=== PATIENT | male | born 1990 | race Caucasian/White ===

== ENCOUNTER 2016-11-23 10:58 | Emergency (ER) | payer OTHER ==
--- NOTE | 2016-11-23 11:04 | PDOC ---
History of Present Illness - General History Source: Patient Exam Limitations: No Limitations - History of Present Illness Initial Comments: 11/23/16 11:11 The patient is a 25 year old male with a significant past medical history of asthma, who presents to the ED with asthma exacerbation. 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 Patient states he uses his albuterol inhaler with little to no alleviation. Patient denies chest pain, fever, chills, nausea, vomiting, diarrhea. Patient denies dysuria, frequency, hematuria. <Steve An - Last Filed: 11/23/16 11:11> <Giorgio Herman - Last Filed: 11/23/16 13:43> - General Chief Complaint: Asthma Stated Complaint: ASTHMA Time Seen by Provider: 11/23/16 11:03 Past History <Steve An - Last Filed: 11/23/16 11:11> - Past Medical History Anemia: Yes - Suicide/Smoking/Psychosocial Hx Smoking History: Never smoked Hx Alcohol Use: No Drug/Substance Use Hx: No Substance Use Type: None <Giorgio Herman - Last Filed: 11/23/16 13:43> - Past Medical History Allergies/Adverse Reactions: Allergies Allergy/AdvReac Type Severity Reaction Status Date / Time No Known Allergies Allergy Verified 11/23/16 11:03 Home Medications: Ambulatory Orders Albuterol 0.083% Nebulizer Amanda [Ventolin 0.083%] 1 neb NEB QID PRN 11/23/16 Albuterol Sulfate Inhaler - [Ventolin HFA Inhaler -] 1 - 2 inh PO QID #1 inhaler 11/23/16 Albuterol Sulfate Inhaler - [Ventolin Hfa Inhaler -] 2 inh PO Q6H PRN 11/23/16 Prednisone [Prednisone 50 MG TABLETS] 50 mg PO BID #10 tablet MDD 2 11/23/16 Review of Systems - Review of Systems Able to Perform ROS?: Yes Comments:: 11/23/16 11:11 GENERAL/CONSTITUTIONAL: No fever or chills. No weakness. HEAD, EYES, EARS, NOSE AND THROAT: No change in vision. No ear pain or discharge. No sore throat. CARDIOVASCULAR: + SOB. No chest pain RESPIRATORY: + asthma exacerbation. No cough, or hemoptysis. GASTROINTESTINAL: No nausea, vomiting, diarrhea or constipation. GENITOURINARY: No dysuria, frequency, or change in urination. MUSCULOSKELETAL: No joint or muscle swelling or pain. No neck or back pain. SKIN: No rash NEUROLOGIC: No headache, vertigo, loss of consciousness, or change in strength/ sensation. ENDOCRINE: No increased thirst. No abnormal weight change. HEMATOLOGIC/LYMPHATIC: No anemia, easy bleeding, or history of blood clots. ALLERGIC/IMMUNOLOGIC: No hives or skin allergy. <Steve An - Last Filed: 11/23/16 11:11> *Physical Exam - Physical Exam Comments: 11/23/16 11:12 GENERAL: Awake, alert, and fully oriented, in no acute distress HEAD: No signs of trauma EYES: PERRLA, EOMI, sclera anicteric, conjunctiva clear ENT: Auricles normal inspection, hearing grossly normal, nares patent, oropharynx clear without exudates. Moist mucosa NECK: Normal ROM, supple, no lymphadenopathy, JVD, or masses LUNGS: Anteriorly and posteriorly wheezing to all lung webb. No crackles. HEART: Regular rate and rhythm, normal S1 and S2, no murmurs, rubs or gallops ABDOMEN: Soft, nontender, normoactive bowel sounds. No guarding, no rebound. No masses EXTREMITIES: Normal range of motion, no edema. No clubbing or cyanosis. No cords, erythema, or tenderness NEUROLOGICAL: Cranial nerves II through XII grossly intact. Normal speech, normal gait SKIN: Warm, Dry, normal turgor, no rashes or lesions noted. <Steve An - Last Filed: 11/23/16 11:11> Medical Decision Making - Medical Decision Making 11/23/16 13:19 Patient feeling much better exam without conversational dyspnea or wheezing to auscultation <Giorgio Herman - Last Filed: 11/23/16 13:43> *DC/Admit/Observation/Transfer - Attestations Scribe Attestion: 11/23/16 11:13 Documentation prepared by Steve An, acting as medical data entry clerk for Giorgio Herman MD. <Steve An - Last Filed: 11/23/16 11:11> - Discharge Dispostion Admit: No - Attestations Physician Attestion: 11/23/16 11:03 I, Dr. Giorgio Herman, attest that this document has been prepared under my direction and personally reviewed by me in its entirety. I further attest, that it accurately reflects all work, treatment, procedures and medical decision -making performed by me. <Giorgio Herman - Last Filed: 11/23/16 13:43> Diagnosis at time of Disposition: Chemical exposure Reactive airway disease with acute exacerbation Qualifiers: Asthma severity: moderate Asthma persistence: persistent Qualified Code(s): J45.41 - Moderate persistent asthma with (acute) exacerbation; J45.41 - Moderate persistent asthma with (acute) exacerbation; J45.41 - Moderate persistent asthma with (acute) exacerbation Asthma Qualifiers: Asthma severity: moderate Asthma persistence: unspecified Asthma complication type: with acute exacerbation Qualified Code(s): J45.901 - Unspecified asthma with (acute) exacerbation; J45.901 - Unspecified asthma with (acute) exacerbation; J45.901 - Unspecified asthma with (acute) exacerbation - Discharge Dispostion Disposition: HOME Condition at time of disposition: Good - Prescriptions Prescriptions: Prednisone [Prednisone 50 MG TABLETS] 50 mg PO BID #10 tablet MDD 2 Albuterol Sulfate Inhaler - [Ventolin HFA Inhaler -] 1 - 2 inh PO QID #1 inhaler - Referrals Referrals: Baudilio Soler MD [Staff Physician] - May Marr MD [Staff Physician] - - Patient Instructions Printed Discharge Instructions: Asthma -- Adult Additional Instructions: Mike, you can also be seen at [facility], but you can also be seen in [facility] for some Advir.......
[2016-11-23] MEDS ORDERED: MAGNESIUM SULF 50% (8.12 MEQ/2 ML-1 GM VIAL) IVPB ONE (11:11)
[2016-11-23] MEDS ORDERED: ALBUTEROL SO4 0.083% IH SOL 2.5 MG/3 ML VIAL.NEB. NEB PRN (11:11)
[2016-11-23] MEDS ORDERED: ALBUTEROL SO4 2.5/IPRATROPIUM 0.5 INH SOL 3 ML VIAL.NEB. NEB ONE ×3 (11:11→11:25)
[2016-11-23] MEDS ORDERED: methylPREDNISolone NA SUCC 125 MG/2 ML VIAL IVPB ONE (11:11)
[2016-11-23] MEDS ORDERED: MAGNESIUM SULF 50% (8.12 MEQ/2 ML-1 GM VIAL) ONE (11:13)
[2016-11-23] MEDS ORDERED: ALBUTEROL SO4 0.083% IH SOL 2.5 MG/3 ML VIAL.NEB. NEB ONE (11:13)
[2016-11-23] MEDS ORDERED: methylPREDNISolone NA SUCC 125 MG/2 ML VIAL ONE (11:14)
[2016-11-23 11:20] VITALS: TEMP 98.1; BMI 36.0
[2016-11-23] MEDS ORDERED: EPINEPHrine/PF 1 MG/1 ML (1:1,000) AMPULE ONE (11:24)
[2016-11-23] MEDS ORDERED: DEXAMETHASONE SOD PHOSPHATE 10 MG/1 ML VIAL ONE (11:24)
[2016-11-23 13:54] VITALS: BP 140/92; PULSE 90
== END 2016-11-23 13:54 | disposition home or self-care (01) ==
LOC: JER 10:58
PROC: 3E0F7GC Introduction of Other Therapeutic Substance into Respiratory Tract, Via Natural or Artificial Opening (ICD-10-PCS; principal; 2016-11-23)
PROC: 3E0F7GC Introduction of Other Therapeutic Substance into Respiratory Tract, Via Natural or Artificial Opening (ICD-10-PCS; 2016-11-23)
PROC: 3E0333Z Introduction of Anti-inflammatory into Peripheral Vein, Percutaneous Approach (ICD-10-PCS; 2016-11-23)
PROC: 3E033GC Introduction of Other Therapeutic Substance into Peripheral Vein, Percutaneous Approach (ICD-10-PCS; 2016-11-23)
DX: J45.41 Moderate persistent asthma with (acute) exacerbation (principal); Z77.098 Contact with and (suspected) exposure to other hazardous, chiefly nonmedicinal, chemicals
CPT/HCPCS: 71010-TC; 94640; 96374; 96375; 99283-25